=== PATIENT | female | born 1995 ===

== ENCOUNTER → 2021-01-17 | Outpatient (CLI) | payer OTHER | END | disposition home or self-care (01) | LOC: LAB SHORT 12:00 → LAB 12:00 | DX: R30.0 Dysuria (principal) | CPT/HCPCS: 87086 ==

== ENCOUNTER → 2021-02-18 | Outpatient (CLI) | payer OTHER | LOC: LAB SHORT 12:29 → LAB UCHC 12:29 → LAB 12:29 | PROVIDERS: Registered Nurse Community Health | DX: Z12.4 Encounter for screening for malignant neoplasm of cervix (principal) | CPT/HCPCS: G0123 ==